=== PATIENT | female | born 1965 | race Caucasian/White ===

== ENCOUNTER 2019-09-16 07:11 | Inpatient (IN) | payer MEDICAID ==
[~2019-09-16 07:11] MED LIST: cefOXitin 2 GM Vial ONE
[2019-09-16] MEDS ORDERED: fentaNYL 250 MCG/5 ML SDV ONE ×2 (07:15→09:46)
[2019-09-16] MEDS ORDERED: Dexamethasone 4 MG/ML SDV ONE (07:15)
[2019-09-16] MEDS ORDERED: Neostigmine Methylsulfate 1 MG/ML 5 ML Syringe ONE (07:15)
[2019-09-16] MEDS ORDERED: Glycopyrrolate 0.2 MG/ML 5 ML MDV ONE (07:15)
[2019-09-16] MEDS ORDERED: Propofol 200 MG/20 ML SDV ONE (07:15)
[2019-09-16] MEDS ORDERED: Rocuronium 50 MG/5 ML Vial ONE ×2 (07:15→10:01)
[2019-09-16] MEDS ORDERED: Ondansetron 4 MG/2 ML SDV ONE (07:15)
[2019-09-16] MEDS ORDERED: Succinylcholine 200 MG/10 ML MDV ONE (07:15)
[2019-09-16] MEDS ORDERED: Scopolamine 1.5 MG Transdermal Patch TOP ONE (08:00)
[2019-09-16] MEDS ORDERED: Dextrose 5%-Lactated Ringers 1,000 ML IV SCH (08:00)
[2019-09-16] MEDS ORDERED: Acetaminophen 500 MG Tab PO ONE (08:00)
[2019-09-16] MEDS ORDERED: cefOXitin 2 GM in Sodium Chloride 0.9% 50 ML IV ONE (09:00)
[2019-09-16] MEDS ORDERED: Ketamine 500 MG/5 ML MDV IV SCH (09:15)
[2019-09-16] MEDS ORDERED: Magnesium Sulfate 3 GM in Sodium Chloride 0.9% 100 ML IV SCH (09:15)
[2019-09-16] MEDS ORDERED: Ketamine 50 MG in Sodium Chloride 0.9% 49.5 ML IV SCH (09:15)
[2019-09-16] MEDS ORDERED: Labetalol 20 MG/4 ML Syringe ONE (10:07)
[2019-09-16] MEDS ORDERED: hydrOXYzine HCL 100 MG/2 ML SDV IM ONE (11:31)
[2019-09-16] MEDS ORDERED: fentaNYL 100 MCG/2 ML SDV IVPUSH ONE (11:31)
[2019-09-16] MEDS ORDERED: HYDROmorphone 0.5 MG/0.5 ML Syringe IVPUSH PRN (13:00)
[2019-09-16] MEDS: HYDROmorphone 1 MG/ML Syringe IV PRN ×4 (13:17→21:56)
[2019-09-16] MEDS ORDERED: Labetalol 20 MG/4 ML Syringe IVPUSH PRN (14:00)
[2019-09-16] MEDS ORDERED: Calcium Gluconate 10% 1 GM/10 ML SDV IVPUSH PRN (14:00)
[2019-09-16] MEDS ORDERED: Ondansetron 4 MG/2 ML SDV IVPUSH PRN (14:00)
[2019-09-16] MEDS ORDERED: Metoclopramide 10 MG/2 ML SDV IVPUSH PRN (14:00)
[2019-09-16] MEDS ORDERED: Albuterol/Ipratropium 3.0-0.5 MG/3 ML Neb Soln INH PRN (14:00)
[2019-09-16] MEDS ORDERED: Acetaminophen 500 MG Tab PO PRN (14:00)
[2019-09-16] MEDS ORDERED: hydrOXYzine HCL 100 MG/2 ML SDV IM PRN (14:00)
[2019-09-16] MEDS ORDERED: diphenhydrAMINE 50 MG/ML SDV IVPUSH PRN (14:00)
[2019-09-16] MEDS: Acetaminophen 500 MG Tab PO SCH ×2 (14:09→21:55)
[2019-09-16] MEDS: Dextrose 5%-Lactated Ringers 1,000 ML IV SCH ×2 (14:16→22:07)
[2019-09-16] MEDS: Albuterol/Ipratropium 3.0-0.5 MG/3 ML Neb Soln INH SCH ×2 (14:20→20:00)
[2019-09-16] MEDS ORDERED: Pantoprazole 40 MG Vial IVPUSH SCH (15:00)
[2019-09-16] MEDS: cefOXitin 2 GM in Sodium Chloride 0.9% 50 ML IV SCH ×2 (15:43→20:02)
[2019-09-16] MEDS ORDERED: MVI, Adult with Vitamin K 10 ML, Thiamine 200 MG, Chromium/Copper/Mang/Selen/Zn 1 ML in... IV SCH ×4 (16:00)
[2019-09-16] MEDS: Heparin Sodium 5,000 Units/ML Vial SUBCUT SCH (17:11)
[2019-09-17] MEDS: Dextrose 5%-Lactated Ringers 1,000 ML IV SCH (03:55)
[2019-09-17] MEDS: HYDROmorphone 1 MG/ML Syringe IV PRN (03:59)
[2019-09-17] MEDS: cefOXitin 2 GM in Sodium Chloride 0.9% 50 ML IV SCH ×3 (04:03→15:09)
[2019-09-17] MEDS ORDERED: Iopamidol 612 MG/ML 50 ML SDV IV PRN (04:08)
--- NOTE | 2019-09-17 05:03 | CRLCR ---
INDICATION: Post gastric sleeve. TECHNIQUE: Upright carton maker image as well as the 2 images post GI contrast ingestion. COMPARISON: None. FINDINGS: Drainage tube in the left upper quadrant. Images obtained at the time of oral contrast material ingestion and 15 minutes post ingestion demonstrate postop changes of gastric sleeve surgery. No extravasation of contrast material is apparent. No obstruction or other abnormality noted. IMPRESSION: Limited upper GI examination with 2 images obtained post oral contrast ingestion. Postop changes of gastric sleeve without clear evidence leak. Dictated by Wally Carlos MD @ Sep 19 2019 2:03PM Signed by Dr. Wally Carlos @ Sep 19 2019 2:07PM
[2019-09-17] MEDS: Acetaminophen 500 MG Tab PO SCH ×3 (05:08→21:06)
[2019-09-17] MEDS: Heparin Sodium 5,000 Units/ML Vial SUBCUT SCH ×2 (05:22→17:59)
[2019-09-17] MEDS: Albuterol/Ipratropium 3.0-0.5 MG/3 ML Neb Soln INH SCH ×4 (08:36→20:00)
[2019-09-17] MEDS ORDERED: Dextrose 5%-Lactated Ringers 1,000 ML IV SCH (09:00)
[2019-09-17] MEDS: oxyCODONE 5 MG Tab PO PRN ×3 (09:20→21:05)
[2019-09-17] MEDS: SCOPOLAMINE PATCH CHECK TOP SCH (09:23)
[2019-09-17] MEDS ORDERED: MVI, Adult with Vitamin K 10 ML, Thiamine 200 MG, Chromium/Copper/Mang/Selen/Zn 1 ML in... IV SCH ×4 (16:00)
[2019-09-17] MEDS: Pantoprazole 40 MG Delayed-Release Granules 1 Packet PO SCH ×2 (18:02→18:12)
[2019-09-17] MEDS: Cyclobenzaprine 10 MG Tab PO PRN (20:04)
[2019-09-18] MEDS: oxyCODONE 5 MG Tab PO PRN ×2 (03:11→10:00)
[2019-09-18] MEDS: Acetaminophen 500 MG Tab PO SCH (05:46)
[2019-09-18] MEDS: Heparin Sodium 5,000 Units/ML Vial SUBCUT SCH (05:46)
[2019-09-18] MEDS: Cyclobenzaprine 10 MG Tab PO PRN (05:48)
[2019-09-18] MEDS ORDERED: Magnesium Hydroxide 400 MG/5 ML Susp 30 ML Cup PO PRN (07:56)
[2019-09-18] MEDS: Albuterol/Ipratropium 3.0-0.5 MG/3 ML Neb Soln INH SCH ×2 (08:30→11:25)
[2019-09-18] MEDS ORDERED: Cyanocobalamin (Vitamin B12) 1,000 MCG/ML SDV IM ONE (09:00)
[2019-09-18] MEDS: SCOPOLAMINE PATCH CHECK TOP SCH (10:07)
--- NOTE | 2019-09-19 13:08 | DISCH ---
FINAL DIAGNOSES: 1. Morbid obesity. 2. History of fibromyalgia. 3. History of anxiety. 4. History of osteoarthritis of hip. 5. History of plantar fasciitis. 6. History of substance abuse. 7. Marked hepatomegaly. 8. Paraesophageal diaphragmatic hernia. 9. Peritoneal implant (2 mm) over cardia of stomach. OPERATIVE PROCEDURES: Done on 09/16/2019, diagnostic laparoscopy with; 1. Laparoscopic sleeve gastrectomy. 2. Neno-Cut needle liver biopsy. 3. Repair of paraesophageal diaphragmatic hernia with mesh. 4. Excision of peritoneal nodule over cardia of stomach. HOSPITAL COURSE: This is a 53-year-old female presenting with longstanding morbid obesity and increasingly significant comorbidities. After preoperative evaluation and discussion, she wished to proceed with sleeve gastrectomy. This was done on the date of admission. She was noted concurrently to have a small nodule over cardia of the stomach, which was excised. This likely will be benign, but pathology is pending. She also had marked hepatomegaly with liver volume being roughly 2 to 3 times normal and grossly fatty infiltrated and biopsies of liver are also pending. She had a paraesophageal diaphragmatic hernia, which was fairly large, and this was repaired with posterior augmentation of the crural repair with an absorbable mesh. Postoperatively, the patient has had no major problems. She is requiring some necrotics to control pain issues. She is allergic to sulfa, so we are not able to use Celebrex. She will be discharged home on Tylenol 1 g p.o. q.i.d. p.r.n.; Flexeril 10 mg t.i.d. p.r.n. muscle spasm; and oxycodone 5 mg q.4 hours p.r.n. pain, #40. She will be sent with two doses of milk of magnesia to take p.r.n. as per usual protocol. We will not have her start her vitamins and other supplements until after the first appointment, which will be with Slime Dior at [facility] on 09/26/2019.
--- NOTE | 2019-09-19 14:38 | PN ---
DATE OF SERVICE: 09/17/2019 The patient is postop day #1, from laparoscopic sleeve gastrectomy along with diaphragmatic hernia repair. Currently, she is doing well. Upper GI x-ray looks good. She is requiring only a small amount of narcotics. We will discontinue the IV Dilaudid and go with some oxycodone if needed. Otherwise, we will move up to a step-2 diet, turn down the IV rate, continue to work on increasing activity and pulmonary toilet. She maybe ready for discharge home tomorrow. Ramirez Smith MD /[id number] MTDD
--- NOTE | 2019-09-20 11:16 | OR ---
DATE OF PROCEDURE: 09/16/2019 SURGEON: Ramirez Smith MD PREOPERATIVE DIAGNOSIS: Morbid obesity. POSTOPERATIVE DIAGNOSES: 1. Morbid obesity. 2. Marked hepatomegaly. 3. Paraesophageal diaphragmatic hernia. 4. Peritoneal implant (2 mm) over cardia of stomach. OPERATIVE PROCEDURE: Diagnostic laparoscopy with: 1. Laparoscopic sleeve gastrectomy (14595). 2. Neno-Cut needle liver biopsy (93433). 3. Repair of paraesophageal diaphragmatic hernia with mesh (77819). 4. Excision of peritoneal nodule over the surface of gastric cardia (61561). ANESTHESIA: General. INDICATIONS FOR PROCEDURE: This is a 53-year-old female presenting with longstanding morbid obesity and increasingly significant comorbidities. After preoperative evaluation and discussion, she wished to proceed with a sleeve gastrectomy. Potential risks of the procedure including bleeding, infection, injury to underlying viscera, leaks from the staple lines, as well as the possibility of cardiopulmonary, septic, or hemorrhagic complications leading to were all discussed, and the patient wishes to proceed. DETAILS OF PROCEDURE: The patient was taken to the operating room and placed in a supine position. After general endotracheal anesthesia was induced, she was converted to a lithotomy position and the abdomen was prepped and draped. At 15 cm inferior and 5 cm left of the xiphoid process, a transverse incision was made and the peritoneal cavity entered under direct vision with an Optiview trocar, inflated to 15 mmHg pressure with CO2. Laparoscope was reinserted. No underlying trocar insertion site injuries were seen. Following this, bilateral subcostal transversus abdominis plane blocks were placed, and 5 additional trocars were placed across the upper and mid abdomen. The patient was noted to have marked hepatomegaly with liver volume being roughly 2 to 3 times normal and liver grossly fatty infiltrated. Neno-Cut needle biopsy was obtained from the left lobe of liver. Minimal bleeding from the biopsy sites was controlled with electrocautery. On elevation of the liver, the patient was noted to have 2 findings, one of that is a clear 2 mm nodule on the cardia of the stomach. This was excised and sent as a separate specimen. This would be over the portion of the stomach that would have been excised via subsequent sleeve gastrectomy excision line. The patient was also noted to have quite a large paraesophageal diaphragmatic hernia with prolapse of perigastric fat, gastric fundus, and the very tip of the spleen into the area of the paraesophageal hernia. Given this, we elected to do a formal posterior repair of the crural defect with mesh augmentation. The hernia was reduced and peritoneum over the anterior aspect of the esophagogastric junction was initially divided, and dissection began between the crura on each side and the esophagus. Eventually a retrocrural window was accomplished. The esophagus was then dissected free from the remaining soft tissue attachments to the point where there was roughly 4 to 5 cm intraabdominal esophageal length. Posterior crural repair was then accomplished over this, and a Phasix ST mesh, which is a dissolvable mesh, was placed over the crural repair and at the crura on each side, where it was affixed with titanium tacking screws, and at this point, this appeared to create a nice anterior deflection of the esophagogastric junction as it passed out of the diaphragm, which should be helpful with regard to postoperative reflux. The greater omental tissue on the mid greater curvature was initially divided with Harmonic Scalpel. This dissection then continued proximally through the short gastric vessels, including the highest and posterior short gastric vessels, and then some remaining attachments to the gastric fundus and left crura were divided, more or less skeletonizing the length of the left crura. Dissection then continued distally, removing the omentum down to the point that was 2 cm proximal to the pyloric channel. The stomach staple line, beginning in the area 2 cm proximal to the pylorus, was then marked out with electrocautery, going across the antrum and then inferior to the incisura angularis, with care taken to avoid overtightening in that area. The first 3 staple lines were then with non-reinforced black loads. Anesthesia then passed a 32-[place] suction tube orally through the length of the esophagus and along the lesser curvature of the stomach, where it was brought up to the lesser curvature and suction applied. The remainder of the sleeve gastrectomy was accomplished with a combination of reinforced black and purple loads up to and through the area of the angle of His. At that point, staple lines appeared to satisfactorily hemostatic. Fibrin sealant was then placed along the length of staple line, focusing on the area of esophagogastric junction. This area was then also reinforced with the omentum brought up against it. With the tube now off suction and the pylorus being compressed, air was injected such that there was tight distention of the remaining stomach, and while this was being irrigated with antibiotic- containing saline solution, no leaks or bleeding problems were noted. At this point, the gastric specimen was retrieved through the left lateral trocar site and after that a single Eric-Finney drain was then brought through the left lateral trocar site and placed up against the area of esophagogastric junction and from there into the splenic fossa. With no further problems noted, trocars were removed, the peritoneal cavity was deflated. Incisions were closed with some 4-0 Vicryl skin stitch. Drain was also affixed with 4-0 Vicryl stitch as well. The patient was taken to the recovery room in satisfactory condition. There were no evident complications. Ramirez Smith MD /[id number]
== END 2019-09-18 13:30 | disposition home or self-care (01) | DRG 621 ==
LOC: JP.SDS 07:11 → JP.SDSSCHI 07:15 → EDSTATUS 09:45 → JP.MS 11:20
PROVIDERS: ADMIT Surgery; ATTEND Surgery
PROC: 0DB64Z3 Excision of Stomach, Percutaneous Endoscopic Approach, Vertical (ICD-10-PCS; principal; 2019-09-16)
PROC: 0BUT4JZ Supplement Diaphragm with Synthetic Substitute, Percutaneous Endoscopic Approach (ICD-10-PCS; 2019-09-16)
PROC: 0FB24ZX Excision of Left Lobe Liver, Percutaneous Endoscopic Approach, Diagnostic (ICD-10-PCS; 2019-09-16)
PROC: 0DBW4ZZ Excision of Peritoneum, Percutaneous Endoscopic Approach (ICD-10-PCS; 2019-09-16)
DX: E66.01 Morbid (severe) obesity due to excess calories (principal); R16.0 Hepatomegaly, not elsewhere classified; K44.9 Diaphragmatic hernia without obstruction or gangrene; M79.7 Fibromyalgia; F41.9 Anxiety disorder, unspecified; F15.10 Other stimulant abuse, uncomplicated; M16.12 Unilateral primary osteoarthritis, left hip; Z87.440 Personal history of urinary (tract) infections; Z90.89 Acquired absence of other organs; Z88.2 Allergy status to sulfonamides; Z91.040 Latex allergy status; Z91.09 Other allergy status, other than to drugs and biological substances; K66.8 Other specified disorders of peritoneum; Z68.41 Body mass index [BMI] 40.0-44.9, adult
CPT/HCPCS: 36415; 74240; 80053; 83735; 84100; 86850; 86900; 86901; A9270-GY; C9113; J0171; J0330; J0694; J1100; J1170; J1644; J2405; J2704; J2710; J2795; J3010; J3410; J3411; J3420; J3475; J3490; J7050; J7121; Q9967